=== PATIENT | male | born 1970 | race Caucasian/White ===

== ENCOUNTER 2023-08-31 07:22 | Inpatient (IN) | payer OTHER, SELFPAY ==
[2023-08-31] VITALS (20 sets, daily range): BP systolic 116–165; BP diastolic 74–87; PULSE 75–110; RESP 13–26; TEMP 36.1–37; O2SAT 91–99; BMI 35.2
--- NOTE | ~2023-08-31 | CT_ITS ---
CT Scan of the Chest without Contrast: Clinical Indication: Hypoxia Technique: Contiguous sections were acquired throughout the chest without intravenous contrast. Dose reduction technique was used on this scan by utilizing automated exposure control and iterative recon struction technique. The dose-length product (DLP) was 411.60 mGy-cm. Findings: There is no evidence of any significant mediastinal, hilar or axillary lymphadenopathy. The mediastin al soft tissues appear normal. There is no evidence of pleural or pericardial effusion. 5 mm right middle lobe pulmonary nodule present (axial image 68). Images through the upper abdomen reveal no abnormalities. Impression: 5 mm right middle lobe pulmonary nodule. According to Fleischner Society criteria, for a low-risk pat ient, no further follow-up required. For a high-risk patient, consider 12 month follow-up CT. Reviewed, dictated and finalized at [facility]. Impression: 5 mm right middle lobe pulmonary nodule. According to Fleischner Society criter ia, for a low-risk patient, no further follow-up required. For a high-risk antonio ent, consider 12 month follow-up CT.
--- NOTE | ~2023-08-31 | XR_ITS ---
EXAMINATION: XR chest 2V DATE: 08/31/2023 08:38 INDICATION: Shortness of breath. TECHNIQUE: Frontal and lateral views of the chest were obtained. COMPARISON: None. FINDINGS: There is no pneumonia, pleural effusion, or pneumothorax. The heart size is normal. IMPRESSION: 1. No acute cardiopulmonary disease. Reviewed, dictated and finalized at location A.
--- NOTE | 2023-08-31 07:29 | ECG_ITS ---
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 Measurements Intervals [place] Rate: 103 P: 58 HI: 154 QRS: -5 QRSD: 104 T: 54 QT: 340 QTc: 445 Interpretive Statements SINUS TACHYCARDIA POSSIBLE LEFT ATRIAL ENLARGEMENT [-0.1mV P WAVE IN V1/V2] ABNORMAL RHYTHM ECG No previous ECG available for comparison Electronically Signed On 08-31-2023 09:12:39 CDT by Tim Vazquez M.D.
[2023-08-31] MEDS: SODIUM CHLORIDE 0.9% IV 1,000 ML 999 ML IV CONT (07:40)
[2023-08-31] MEDS: IPRATROPIUM 0.5 MG/ALBUTEROL SULFATE 2.5 MG AMPUL.NEB 3 ML 6 ML INHALATION (07:49)
[2023-08-31 08:01] LABS: Base Excess ABG -0.6 mEq/l (+/-2.0); Fractional Inspired Oxygen 21 %; HCO3 ABG 24.4 mEq/l (22.0-26.0); Oxygen Content ABG 18.8 %vol (16.0-22.0); Oxygen Saturation ABG 88.8 % (95.0-100.0); PCO2 ABG 41.6 mmHg (35.0-45.0); PO2 ABG 55.9 mmHg (80.0-100.0); PO2 FiO2 Ratio Arterial Blood 2.66 %; Total Hemoglobin 15.6 g/dL (12.0-18.0); pH ABG 7.386 (7.350-7.450)
--- NOTE | 2023-08-31 08:01 | ED.GENADULT ---
HPI - General Adult General Chief complaint: Shortness of Breath/Dyspnea Stated complaint: SOB Time Seen by Provider: 08/31/23 07:37 History of Present Illness HPI narrative: This is a 53-year-old male with history of diabetes and COPD/ asthma presenting for difficulty breathing. Patient says that he has become steadily more short of breath over the last 3-5 days. It became acutely worse this morning. It is associated with a productive cough rust colored sputum. He denies fevers chills nausea vomiting or diarrhea. Patient has a history of COPD/ asthma stop taking his inhaler several years ago that they were useful. He has been taking his diabetes medication as instructed. denies history of heart failure but has some swelling of his legs. 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 Patient called EMS to a truck stop this morning for shortness of breath. When they found him he was wheezy all byrnes and received a DuoNeb treatment EN route with improvement. They did note that his blood sugar read high. Related Data Allergies Allergy/AdvReac Type Severity Reaction Status Date / Time diazepam [From Valium] AdvReac Unknown Verified 08/31/23 07:48 Penicillins AdvReac Unknown Verified 08/31/23 07:48 FOR[facility]LY [facility] Past Medical History Medical History (Updated 08/31/23 @ 12:49 by Florencio Philippe MD) COPD (chronic obstructive pulmonary disease) Diabetes Exam Narrative: APPEARANCE: No apparent distress. Head: atraumatic. EYES: EOMI, NOSE: Atraumatic NECK: Trachea midline RESPIRATORY: my exam was performed after a DuoNeb treatment EMS : No increased rate of breathing, speaking in full sentences, clear to auscultation CARDIOVASCULAR: RRR, +2 pitting edema. patient wears compression stockings at baseline. ABDOMINAL: Non-distended MUSCULOSKELETAl: No obvious deformities NEURO: Alert. Moving 4/4 extremities SKIN:: Warm, dry. Normal color PSYCHIATRIC: Normal affect Course Vital Signs Vital signs: Vital Signs Temperature 98.6 F 08/31/23 07:20 Pulse Rate 110 H 08/31/23 07:20 Respiratory Rate 26 H 08/31/23 07:20 Pulse Oximetry 93 08/31/23 07:20 Oxygen Delivery Room Air 08/31/23 07:20 Temperature 98.6 F 08/31/23 07:20 Pulse Rate 85 08/31/23 10:19 Respiratory Rate 26 H 08/31/23 10:19 Blood Pressure 116/78 08/31/23 10:19 Pulse Oximetry 95 08/31/23 10:19 Oxygen Delivery Nasal Cannula 08/31/23 08:20 Oxygen Flow Rate 2 08/31/23 08:20 Medical Decision Making MDM Narrative Medical decision making narrative: -Course: 53-year-old male history of COPD and diabetes presenting with difficulty breathing/productive cough and elevated blood sugars.Patient was wheezy for EMS and he was given a DuoNeb treatment en route. No significant wheezing on my initial exam. Patient is hypoxic on room air. D-dimer negative. Imaging negative for pneumonia. Patient given another DuoNeb/magnesium/steroids/bactrim for COPD exacerbation. Glucose was also elevated but no acidosis or ketosis. Improved with fluid rehydration to 358. Patient will be admitted to hospital for COPD exacerbation. 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 White count normal. D-dimer negative. ABG showed hypoxia without significant CO2 retention. Metabolic panel showed elevated glucose without evidence of DKA/ HHS, hemoglobin A1c 12.1. Minor elevations liver enzymes of unknown etiology. Urine not indicative infection. Viral swabs negative CT without evidence of pneumonia -Discussion of Management/Consultants: Shanel UPHOLSTERER APPRENTICE -Interventions: nicotine patch, dexamethasone, DuoNeb treatment, magnesium, Bactrim -Shared decision making / Disposition: admitted Vital Signs Vital Signs:
[2023-08-31 08:02] LABS: Basophils Absolute Auto 0.1 K/mm3 (0.0-0.1); Basophils Percent Auto 0.6 % (0.2-1.2); Beta-Hydroxybutyrate/Acetoacetate 0.15 mmol/L (0.02-0.27); Eosinophils Absolute Auto 0.4 K/mm3 (0-0.3); Eosinophils Percent Auto 4.4 % (0-4.4); Hematocrit 46.4 % (42.0-52.0); Hemoglobin 15.5 g/dL (14.0-18.0); Immature Granulocyte Absolute 0.07 K/mm3 (0.00-0.031); Immature Granulocyte Percent A 0.8 % (0-0.5); Lymphocytes Absolute Auto 1.76 K/mm3 (0.9-3.2); Lymphocytes Percent Auto 21.1 % (18.3-44.2); Mean Corpuscular HGB Conc 33.4 g/dl (32-36); Mean Corpuscular Hemoglobin 30.6 pg (26-34); Mean Corpuscular Volume 91.5 fl (80-100); Mean Platelet Volume 10.1 fl (7.4-10.4); Monocytes Absolute Auto 0.4 K/mm3 (0.1-0.6); Monocytes Percent Auto 4.9 % (2.6-8.5); Neutrophils Absolute Auto 5.7 K/mm3 (1.3-6.7); Neutrophils Percent Auto 68.2 % (45.5-73.1); Platelet Count Result 171 k/mm3 (150-375); Red Blood Count 5.07 M/mm3 (4.6-6.20); Red Cell Distribution Width 12.5 % (11.5-14.5); White Blood Count 8.3 K/mm3 (4.5-10.0)
[2023-08-31 08:02] LABS: Device ROOM AIR; Oxyhemoglobin 85.7 % THb (90.0-100.0); Site Drawn LEFT BRACHIAL
[2023-08-31] MEDS: MAGNESIUM SULF 2 GM/WATER 50ML 2 GM/50 ML BAG IVPB (08:05)
[2023-08-31 08:15] LABS: Appearance Urine Clear (Clear); Bilirubin Urine Negative (Negative); Blood Urine Negative (Negative); Color Urine Yellow (Yellow); Glucose Urine UA 3+ mg/dL (Negative); Ketones Urine Negative (Negative); Leukocyte Esterase Ur Negative LEU/UL (Negative); Nitrate Urine Negative (Negative); Protein Urine Negative (Negative); Urobilinogen Urine 0.2 mg/dL (<2.0); pH Urine 6.5 (5.0-9.0)
[2023-08-31 08:17] LABS: Alanine Aminotransferase 432 U/L (6-50); Albumin Level 4.1 g/dL (3.5-5.1); Alkaline Phosphatase 248 U/L (38-126); Anion Gap 6 mmol/L (4-12); Aspartate Amino Transferase 204 U/L (17-59); Bilirubin,Total 0.5 mg/dL (0.2-1.3); Blood Urea Nitrogen 13 mg/dL (9-20); Carbon Dioxide 26 mmol/L (22-30); Chloride 95 mmol/L (98-107); Estimated CRCL calculation 123 ml/min; Estimated Glomerular Filt Rate > 60; Glucose 793 mg/dL (65-110); Phosphorus 3.2 mg/dL (2.5-4.5); Potassium 4.3 mmol/L (3.4-5.0); Sodium 127 mmol/L (137-145)
[2023-08-31 08:21] LABS: Add Urine Microscopic? NO; Specific Grav Ur 1.037 (1.001-1.035)
[2023-08-31 08:34] LABS: Influenza A QL RT-PCR Negative (Negative); Influenza B QL RT-PCR Negative (Negative); RSV RNA, RT-PCR Negative (Negative); SARS-CoV-2 RNA PCR Negative (Negative)
[2023-08-31 09:51] LABS: Glucose Point of Care > 500 mg/dl (65-105)
[2023-08-31 09:54] LABS: NT Pro B Type Natriuretic Pept 76 pg/mL (19.9-100)
[2023-08-31 10:14] LABS: D Dimer 0.35 ug/mL (<0.48)
[2023-08-31] MEDS: NICOTINE (*PBKC) 21 MG PATCH 1 PATCH TRANSDERM (10:14)
[2023-08-31 11:03] LABS: Hemoglobin A1C 12.1 % (<5.7)
[2023-08-31] MEDS: methylPREDNISolone SOD SUCC 125 MG VIAL IV PUSH (11:38)
[2023-08-31] MEDS: SULFAMETHOXAZOLE/TRIMETHOPRIM 800/160 MG DS TABLET 1 TAB PO (11:38)
--- NOTE | 2023-08-31 12:39 | PC.NURSE ---
BS 378
[2023-08-31 12:40] LABS: Glucose Point of Care 378 mg/dl (65-105)
--- NOTE | 2023-08-31 13:46 | PC.NURSE ---
This patient, Mukesh Vail, was admitted to Medical Room 255-. Patient/family oriented to hospital policies and general routines including ID bracelet, bed and alarms, visiting hours, pain management, procedures, bathroom and other care routines, personal items, smoking policy, room service/diet, and visiting hours. Information on how to activate the Rapid Response Team has been discussed. Patient/Family are encouraged to report perceived risks to care and to ask questions if they do not understand what they are told or what they should do.
--- NOTE | 2023-08-31 14:04 | PM.IMHP ---
H&P: HPI History of Present Illness Date/Time: 08/31/23 14:04 Chief Complaint: SOB, Hyperglycemia Narrative: 53 y/o M presents here with shortness of breath and hyperglycemia with PMH COPD and DM. The patient presents here via EMS from home for further evaluation of shortness of breath and hyperglycemia. Patient reports the shortness of breath began approximately 3-5 days ago with an insidious onset. He sought care today due to the significant worsening in his shortness of breath this morning. Shortness of breath is accompanied by a productive cough yielding green and brown sputum. Upon EMS arrival, patient's O2 sat was 91% on RA. Given DuoNeb and placed on a nasal cannula in route. Upon arrival to the ED his sat was 93% on RA, later placed back on supplemental O2. Patient's glucose on his chemistry panel was 793. Reports compliance with his diabetes medications, however has been noncompliant with his COPD medications for the past few years. Reports that he self-discontinued these medications as they were not helpful . Patient does/does not monitor his glucose levels at home. 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 Initial VS at presentation: 98.6? F, HR 110, RR 26, 139/75, and 93% on RA. ED workup showed: No leukocytosis, no anemia, D-dimer negative, ABG showed low PO2 and O2 saturation, sodium 127, creatinine 0.7 and GFR >60, glucose 73, A1c 12.1, AST 204, ALT 432, alk-phos 248, beta hydroxy 0.15, BNP 76. UA not suggestive of UTI. Viral PCR negative. CXR showed no acute cardiopulmonary disease. Chest CT showed a 5 mm right middle lobe pulmonary nodule. Review of Systems Review of Systems: All systems reviewed & are unremarkable except as noted in HPI and below PMFSH Past Medical History Medical History ADHD Anxiety Asthma Bipolar disorder Cataracts, bilateral COPD (chronic obstructive pulmonary disease) Diabetes GERD (gastroesophageal reflux disease) HLD (hyperlipidemia) Sleep apnea Surgical History Surgical History History of inguinal hernia repair Family History Family History Mother Cancer Heart failure Diabetes mellitus Father Malignant neoplasm of prostate Other Hypotension Social History Social History Smoking packs per day: 2 Smoking cigarettes per day: 40.0 Smoking status: Current every day smoker Tobacco type: cigarettes Alcohol intake: current Drinks per week: 2 Substance use: never Do You Feel Safe in your Home?: Yes Lack of Transportation: No Lack of Food: Never True Current Housing: I Have Housing Concerned About Future Housing: No Difficulty Paying Gas/Electric Bills: No Difficulty Paying for Meds: No Currently Unemployed: No Education: Grade School Difficulty w/ Childcare or Family Care: No Spiritual care concerns: No Meds Home Medications and Allergies Home Medications Medication Instructions Recorded Confirmed Type aripiprazole 10 mg tablet 10 mg PO DAILY 08/31/23 08/31/23 History atorvastatin 20 mg tablet 20 mg PO HS 08/31/23 08/31/23 History dulaglutide 4.5 mg/0.5 mL 4.5 mg subcut WEEKLY 08/31/23 08/31/23 History subcutaneous pen injector (Trulicity) ertugliflozin 15 mg tablet 15 mg PO DAILY 08/31/23 08/31/23 History (Steglatro) flash glucose sensor (FreeStyle 08/31/23 08/31/23 History Stacia 2 Sensor kit) furosemide 20 mg tablet 20 mg PO DAILY 08/31/23 08/31/23 History glipizide 10 mg tablet 10 mg PO BID 08/31/23 08/31/23 History metformin 500 mg tablet 1,000 mg PO BID 08/31/23 08/31/23 History mirtazapine 15 mg tablet 15 mg PO HS 08/31/23 08/31/23 History omeprazole 20 mg capsule,delayed 20 mg PO DAILY 08/31/23 08/31/23 Histor
[2023-08-31 14:48] LABS: Glucose Point of Care 480 mg/dl (65-105)
[2023-08-31] MEDS: IPRATROPIUM 0.5 MG/ALBUTEROL SULFATE 2.5 MG AMPUL.NEB 3 ML INHALATION (15:22)
--- NOTE | 2023-08-31 15:27 | PC.NURSE ---
Voicemail left with adaptive physical educator.
[2023-08-31] MEDS: INSULIN HUMAN REGULAR (*BKC) 100 UNITS/ML 12 UNITS SUB-Q ×2 (15:40→22:00)
[2023-08-31] MEDS: AZITHROMYCIN 500 MG/NS 250 ML 500 MG/250 ML BAG 250 MG IVPB (16:12)
[2023-08-31 16:50] LABS: Glucose Point of Care 399 mg/dl (65-105)
[2023-08-31] MEDS: methylPREDNISolone SOD SUCC 125 MG VIAL 60 MG IV PUSH (17:25)
[2023-08-31] MEDS: INSULIN ASPART (*BKC) 100 UNITS/ML SUB-Q (17:25)
[2023-08-31 21:38] LABS: Glucose Point of Care 435 mg/dl (65-105)
[2023-09-01] VITALS (14 sets, daily range): BP systolic 116–129; BP diastolic 67; PULSE 70–82; RESP 16–20; TEMP 35.9–36.7; O2SAT 93–100
[2023-09-01] MEDS: methylPREDNISolone SOD SUCC 125 MG VIAL 60 MG IV PUSH ×4 (00:35→17:43)
[2023-09-01] MEDS: INSULIN GLARGINE (*BKC) 100 UNITS/ML 16 UNITS SUB-Q ×3 (00:39→17:43)
[2023-09-01] MEDS: IPRATROPIUM 0.5 MG/ALBUTEROL SULFATE 2.5 MG AMPUL.NEB 3 ML INHALATION ×4 (02:25→20:24)
[2023-09-01 05:28] LABS: Basophils Percent Auto 0.3 % (0.2-1.2); Hematocrit 43.4 % (42.0-52.0); Hemoglobin 14.4 g/dL (14.0-18.0); Immature Granulocyte Absolute 0.11 K/mm3 (0.00-0.031); Immature Granulocyte Percent A 0.9 % (0-0.5); Lymphocytes Absolute Auto 1.31 K/mm3 (0.9-3.2); Lymphocytes Percent Auto 10.7 % (18.3-44.2); Mean Corpuscular HGB Conc 33.2 g/dl (32-36); Mean Corpuscular Hemoglobin 29.9 pg (26-34); Mean Corpuscular Volume 90.2 fl (80-100); Mean Platelet Volume 9.9 fl (7.4-10.4); Monocytes Absolute Auto 0.2 K/mm3 (0.1-0.6); Monocytes Percent Auto 1.8 % (2.6-8.5); Neutrophils Absolute Auto 10.6 K/mm3 (1.3-6.7); Neutrophils Percent Auto 86.3 % (45.5-73.1); Platelet Count Result 171 k/mm3 (150-375); Red Blood Count 4.81 M/mm3 (4.6-6.20); Red Cell Distribution Width 12.7 % (11.5-14.5); White Blood Count 12.3 K/mm3 (4.5-10.0)
[2023-09-01 05:49] LABS: Alanine Aminotransferase 298 U/L (6-50); Albumin Level 3.7 g/dL (3.5-5.1); Alkaline Phosphatase 194 U/L (38-126); Anion Gap 5 mmol/L (4-12); Aspartate Amino Transferase 53 U/L (17-59); Bilirubin,Total 0.5 mg/dL (0.2-1.3); Blood Urea Nitrogen 19 mg/dL (9-20); Calcium 8.7 mg/dL (8.4-10.2); Carbon Dioxide 24 mmol/L (22-30); Chloride 102 mmol/L (98-107); Estimated CRCL calculation 169 ml/min; Estimated Glomerular Filt Rate > 60; Glucose 329 mg/dL (65-110); Potassium 4.4 mmol/L (3.4-5.0); Sodium 131 mmol/L (137-145)
[2023-09-01 06:10] LABS: Glucose Point of Care 325 mg/dl (65-105)
[2023-09-01] MEDS: INSULIN HUMAN NPH (*BKC) 100 UNITS/ML 8 UNITS SUB-Q (06:11)
--- NOTE | 2023-09-01 08:02 | PM.IMPN ---
Progress Note: A&P Assessment and Plan (1) COPD exacerbation: Code(s): J44.1 - Chronic obstructive pulmonary disease with (acute) exacerbation Status: Acute (2) Uncontrolled type 2 diabetes mellitus: Status: Acute Plan (1) COPD (chronic obstructive pulmonary disease): Qualifiers: COPD type: COPD with acute exacerbation Qualified Code(s): J44.1 - Chronic obstructive pulmonary disease with (acute) exacerbation Code(s): J44.9 - Chronic obstructive pulmonary disease, unspecified Status: Acute Assessment and Plan: possible COPD exacerbation, patient has a productive cough and worsening shortness breath - CXR: no acute cardiopulmonary disease. - started on prophylactic abx: azithromycin and ceftriaxone on 08/30 - methylprednisolone 60 mg IVP Q6H, given loading dose of 125 mg IVP - DuoNebs Q6H NARINDER - Viral PCR negative - sputum culture - currently requiring supplemental O2 - 2L NC uncontrolled type 2 diabetes - initial glucose 793 - no ketones on UA - pH 7.386 on ABG - beta hydroxy 0.15 - given 1L of fluid and 10 of regular insulin IVP - sodium 144 when corrected for hyperglycemia - hypoglycemia protocol - POC blood glucose ACHS - home medications: Holding ertugliflozin, glipizide, metformin, and start Lantus 16 units b.i.d., discontinue NPH 8 units subQ b.i.d. start aspart 5 mg t.i.d. with meal continue correct regimen ordered - moderate dose TIDWM, based off BMI - A1C 12.1% - body mechanic consulted may be discharged patient in 1-2 days, Subjective Date/time seen: 09/01/23 08:02 Interval history: I saw and examined the patient patient room. Patient feels dyspnea is improving, patient still has cough with phlegm. Patient feel tired, has polyuria, polydipsia. patient denies abdomen pain nausea vomiting diarrhea dysuria Exam Narrative: GENERAL: Pleasant, in no acute distress. Well-nourished. - EYES: EOMI. Anicteric. - HENT: Moist mucous membranes. - LUNGS: Clear to auscultation bilaterally, no wheezing, rhonchi, or rales. - CARDIOVASCULAR: Regular rate and rhythm. No murmur. No JVD. - ABDOMEN: Soft, non-tender and non-distended. No palpable masses. - EXTREMITIES: No edema. Peripheral pulses 2+. Non-tender. - NEUROLOGIC: No focal neurological deficits. CN II-XII grossly intact. - PSYCHIATRIC: Awake, Alert and oriented x 3. Appropriate mood and affect. - SKIN: No rashes or lesions. Warm. - LYMPH: No cervical lymphadenopathy. Objective Data Vital Signs Vital Signs: Vital Signs - 24 hr 08/31/23 08:20 08/31/23 08:45 08/31/23 08:48 Temperature Pulse Rate 97 99 Respiratory Rate 22 H 22 H Blood Pressure 146/77 H 146/77 H Pulse Oximetry 94 93 93 Oxygen Delivery Nasal Cannula Oxygen Flow Rate 2 Fraction of Inspired Oxygen 08/31/23 09:01 08/31/23 09:32 08/31/23 10:19 Temperature Pulse Rate 91 88 85 Respiratory Rate 21 H 17 26 H Blood Pressure 132/76 141/74 H 116/78 Pulse Oximetry 93 96 95 Oxygen Delivery Oxygen Flow Rate Fraction of Inspired Oxygen 08/31/23 12:45 08/31/23 14:00 08/31/23 15:26 Temperature 97.6 F Pulse Rate 82 78 79 Respiratory Rate 18 16 20 Blood Pressure 150/77 H 164/87 H Pulse Oximetry 96 95 92 Oxygen Delivery Nasal Cannula Oxygen Flow Rate 2 Fraction of Inspired Oxygen 08/31/23 15:26 08/31/23 15:32 08/31/23 14:35 Temperature Pulse Rate 79 75 Respiratory Rate 20 20 Blood Pressure Pulse Oximetry 92 Oxygen Delivery Nasal Cannula Oxygen Flow Rate 2 Fraction of Inspired Oxygen 08/31/23 20:13 08/31/23 20:50 09/01/23 02:25 Temperature 97.0 F L Pulse Rate 86 72 Respiratory Rate 18 20 Blood Pressure 165/83 H Pulse Oximetry 91 91 Oxygen Delivery Nasal Cannula Oxygen Flow Rate 2 Fraction of Inspired Oxygen 09/01/23 02:40 09/01/23 02:41 09/01/23 05:43 Temperature 97.6 F Pulse Rate 74 73 82 Respiratory Rate 20 20 18 Blood
[2023-09-01 08:30] LABS: Glucose Point of Care 333 mg/dl (65-105)
[2023-09-01] MEDS: INSULIN ASPART (*BKC) 100 UNITS/ML SUB-Q ×5 (09:00→17:44)
[2023-09-01] MEDS: PIOGLITAZONE HCL 30 MG TABLET PO (09:16)
[2023-09-01] MEDS: ARIPiprazole 10 MG TABLET PO (09:16)
[2023-09-01] MEDS: PANTOPRAZOLE 40 MG TABLET PO (09:16)
[2023-09-01 12:00] LABS: Glucose Point of Care 218 mg/dl (65-105)
[2023-09-01] MEDS: NICOTINE (*PBKC) 21 MG PATCH 1 PATCH TRANSDERM (12:17)
[2023-09-01 16:56] LABS: Glucose Point of Care 291 mg/dl (65-105)
[2023-09-01] MEDS: AZITHROMYCIN 500 MG/NS 250 ML 500 MG/250 ML BAG 250 MG IVPB (17:01)
[2023-09-01] MEDS: VENLAFAXINE HCL XR 75 MG CAP.ER.24H 150 MG PO (20:52)
[2023-09-01] MEDS: MIRTAZAPINE 15 MG TABLET PO (20:52)
[2023-09-01] MEDS: ATORVASTATIN 20 MG TABLET PO (20:52)
[2023-09-01 21:19] LABS: Glucose Point of Care 299 mg/dl (65-105)
[2023-09-02] VITALS (11 sets, daily range): BP systolic 111–125; BP diastolic 62–74; PULSE 72–77; RESP 18–20; TEMP 36.2–36.4; O2SAT 94–96
[2023-09-02] MEDS: methylPREDNISolone SOD SUCC 125 MG VIAL 60 MG IV PUSH ×2 (00:25→05:51)
[2023-09-02] MEDS: IPRATROPIUM 0.5 MG/ALBUTEROL SULFATE 2.5 MG AMPUL.NEB 3 ML INHALATION ×3 (03:02→13:20)
[2023-09-02 08:04] LABS: Glucose Point of Care 209 mg/dl (65-105)
[2023-09-02] MEDS: NICOTINE (*PBKC) 21 MG PATCH 1 PATCH TRANSDERM (08:26)
[2023-09-02] MEDS: INSULIN ASPART (*BKC) 100 UNITS/ML SUB-Q ×5 (08:28→17:17)
[2023-09-02] MEDS: PANTOPRAZOLE 40 MG TABLET PO (08:28)
[2023-09-02] MEDS: ARIPiprazole 10 MG TABLET PO (08:28)
[2023-09-02] MEDS: PIOGLITAZONE HCL 30 MG TABLET PO (08:28)
[2023-09-02] MEDS: INSULIN GLARGINE (*BKC) 100 UNITS/ML 16 UNITS SUB-Q ×2 (08:31→17:21)
--- NOTE | 2023-09-02 10:29 | PM.IMPN ---
Progress Note: A&P Assessment and Plan (1) COPD exacerbation: Code(s): J44.1 - Chronic obstructive pulmonary disease with (acute) exacerbation Status: Acute (2) Uncontrolled type 2 diabetes mellitus: Status: Acute Plan This is a 53-year-old male with history of diabetes and COPD/asthma present with shortness of breath. Ongoing over the past 3-5 days prior to admission. Associated productive cough with keira colored sputum. No fever chills. No nausea vomiting diarrhea. He stopped using his inhaler several years ago. Has been on oral hypoglycemic agent for his diabetes. 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 EMS was called to a truck stop while he was acutely short of breath. He was diffusely wheezy on arrival of EMS and received a DuoNeb treatment in route with improvement. His blood sugar was elevated at 793 on presentation to the ED. On ED evaluation patient was hypoxic on room air needing oxygen supplementation via nasal cannula. Mildly tachycardic afebrile. Laboratory evaluation showed normal WBC 8.3 hemoglobin of 15.5 hyponatremia of 127 blood sugar of 793. LFTs were elevated with AST 204 ALT 432 alkaline phosphatase 248. BNP was 76. Beta hydroxybutyrate was 0.15. Influenza RSV and COVID was negative. The urinalysis was negative for infection. ABG performed showed 7.38/41/55/24. D-dimer was negative. EKG showed sinus tachycardia. Chest x-ray with no acute cardiopulmonary disease. CT chest was performed on 08/31/2023 without contrast which showed 5 mm right middle lobe pulmonary nodule that needs a follow-up CT scan. He has long-term smoker. He has been started on antibiotics and steroid with improvement. Will switch his steroid to oral to complete 5 days course. Short course has also concurrently hyperglycemic with a A1c coming back at 12.1. His oral hypoglycemic agents are on hold currently and has been started on basal bolus insulin regimen. extension educator consultation. Anticipate insulin regimen to start at discharge due to uncontrolled diabetes mellitus. No signs of DKA on admission. Hypoxic respiratory failure needing oxygen supplementation via nasal cannula has been tapered off to room air. DVT prophylaxis SCDs. Subjective Date/time seen: 09/02/23 10:29 Interval history: No overnight events. Breathing has improved. Cough is improved. Blood sugar trend reviewed. Review of Systems Review of Systems: All systems reviewed & are unremarkable except as noted in HPI and below Exam Narrative: GENERAL: Pleasant, in no acute distress. Well-nourished. - EYES: EOMI. Anicteric. - HENT: Moist mucous membranes. - LUNGS: Coarse breath sounds to auscultation bilaterally, no wheezing, rhonchi, or rales. - CARDIOVASCULAR: Regular rate and rhythm. No murmur. No JVD. - ABDOMEN: Soft, non-tender and non-distended. No palpable masses. - EXTREMITIES: No edema. Peripheral pulses 2+. Non-tender. - NEUROLOGIC: No focal neurological deficits. CN II-XII grossly intact. - PSYCHIATRIC: Awake, Alert and oriented x 3. Appropriate mood and affect. - SKIN: No rashes or lesions. Warm. - LYMPH: No cervical lymphadenopathy. Objective Data Vital Signs Vital Signs: Vital Signs - 24 hr 09/01/23 14:08 09/01/23 14:17 09/01/23 15:07 Temperature 98.0 F Pulse Rate 72 76 76 Respiratory Rate 18 18 16 Blood Pressure 129/67 Pulse Oximetry 95 Oxygen Delivery Fraction of Inspired Oxygen 09/01/23 20:32 09/01/23 20:24 09/01/23 20:38 Temperature 96.7 F L Pulse Rate 70 78 79 Respiratory Rate 20 18 18 Blood Pressure 116/67 Pulse Oximetry 100 Oxygen Delivery Fraction of Inspired Oxygen 09/01/23 20:50 09/02/23 03:01 09/02/23 03:09 Temperature Pulse Rate 79 76 77 Respiratory Rate 18 18 18 Blood Pressure Pulse Oximetry 100 Oxygen Delivery Room Air Fraction of Inspired Oxygen 21 09/01/23 23:00 09/02/23 05:52 09/02/23 07:37 Temperature 97.6 F Pulse Rate 7
[2023-09-02 11:59] LABS: Glucose Point of Care 211 mg/dl (65-105)
--- NOTE | 2023-09-02 14:44 | PC.NURSE ---
left message with ice plant operator to see patient tomorrow.
[2023-09-02 17:12] LABS: Glucose Point of Care 175 mg/dl (65-105)
[2023-09-02] MEDS: AZITHROMYCIN 500 MG/NS 250 ML 500 MG/250 ML BAG 250 MG IVPB (17:29)
[2023-09-02 20:57] LABS: Glucose Point of Care 206 mg/dl (65-105)
[2023-09-02] MEDS: VENLAFAXINE HCL XR 75 MG CAP.ER.24H 150 MG PO (21:49)
[2023-09-02] MEDS: ATORVASTATIN 20 MG TABLET PO (21:49)
[2023-09-02] MEDS: MIRTAZAPINE 15 MG TABLET PO (21:49)
[2023-09-03 05:27] LABS: Basophils Percent Auto 0.4 % (0.2-1.2); Eosinophils Absolute Auto 0.1 K/mm3 (0-0.3); Eosinophils Percent Auto 1.1 % (0-4.4); Immature Granulocyte Absolute 0.17 K/mm3 (0.00-0.031); Immature Granulocyte Percent A 1.6 % (0-0.5); Lymphocytes Absolute Auto 3.26 K/mm3 (0.9-3.2); Lymphocytes Percent Auto 31.1 % (18.3-44.2); Mean Corpuscular HGB Conc 32.6 g/dl (32-36); Mean Corpuscular Volume 92.1 fl (80-100); Mean Platelet Volume 9.5 fl (7.4-10.4); Monocytes Absolute Auto 0.6 K/mm3 (0.1-0.6); Monocytes Percent Auto 5.8 % (2.6-8.5); Neutrophils Absolute Auto 6.3 K/mm3 (1.3-6.7); Platelet Count Result 197 k/mm3 (150-375); Red Blood Count 4.67 M/mm3 (4.6-6.20); White Blood Count 10.5 K/mm3 (4.5-10.0)
[2023-09-03 05:51] LABS: Alanine Aminotransferase 166 U/L (6-50); Albumin Level 3.5 g/dL (3.5-5.1); Alkaline Phosphatase 124 U/L (38-126); Anion Gap 5 mmol/L (4-12); Aspartate Amino Transferase 34 U/L (17-59); Bilirubin,Total 0.4 mg/dL (0.2-1.3); Blood Urea Nitrogen 32 mg/dL (9-20); Calcium 8.7 mg/dL (8.4-10.2); Carbon Dioxide 27 mmol/L (22-30); Chloride 105 mmol/L (98-107); Estimated CRCL calculation 125 ml/min; Estimated Glomerular Filt Rate > 60; Glucose 90 mg/dL (65-110); Magnesium 2.2 mg/dL (1.6-2.3); Potassium 3.5 mmol/L (3.4-5.0); Sodium 137 mmol/L (137-145)
[2023-09-03 05:57] VITALS: BP 135/76; PULSE 79; RESP 18; TEMP 36.7; O2SAT 94
[2023-09-03 08:00] VITALS: O2SAT 94
[2023-09-03 08:04] LABS: Glucose Point of Care 90 mg/dl (65-105)
[2023-09-03] MEDS: predniSONE 20 MG TABLET 40 MG PO (08:18)
[2023-09-03] MEDS: ARIPiprazole 10 MG TABLET PO (08:18)
[2023-09-03] MEDS: PANTOPRAZOLE 40 MG TABLET PO (08:18)
[2023-09-03] MEDS: PIOGLITAZONE HCL 30 MG TABLET PO (08:18)
[2023-09-03] MEDS: NICOTINE (*PBKC) 21 MG PATCH 1 PATCH TRANSDERM (08:18)
--- NOTE | 2023-09-03 08:22 | PC.NURSE ---
Dr Lara notified of glucose 900 this am and holding schedules novolog 5 units.
[2023-09-03 09:50] VITALS: BMI 35.2
--- NOTE | 2023-09-03 11:39 | PM.DS ---
DS: Admitting Diagnosis Discharge Date 09/03/2023 Admitting Diagnosis Shortness of breath DS: Discharge Diagnosis Discharge Diagnosis (1) COPD exacerbation: Code(s): J44.1 - Chronic obstructive pulmonary disease with (acute) exacerbation Status: Acute (2) Uncontrolled type 2 diabetes mellitus: Status: Acute DS: Summary Hospital Course Hospital Course: This is a 53-year-old male with history of diabetes and COPD/asthma present with shortness of breath. Ongoing over the past 3-5 days prior to admission. Associated productive cough with keira colored sputum. No fever chills. No nausea vomiting diarrhea. He stopped using his inhaler several years ago. Has been on oral hypoglycemic agent for his diabetes. 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 EMS was called to a truck stop while he was acutely short of breath. He was diffusely wheezy on arrival of EMS and received a DuoNeb treatment in route with improvement. His blood sugar was elevated at 793 on presentation to the ED. On ED evaluation patient was hypoxic on room air needing oxygen supplementation via nasal cannula. Mildly tachycardic afebrile. Laboratory evaluation showed normal WBC 8.3 hemoglobin of 15.5 hyponatremia of 127 blood sugar of 793. LFTs were elevated with AST 204 ALT 432 alkaline phosphatase 248. BNP was 76. Beta hydroxybutyrate was 0.15. Influenza RSV and COVID was negative. The urinalysis was negative for infection. ABG performed showed 7.38/41/55/24. D-dimer was negative. EKG showed sinus tachycardia. Chest x-ray with no acute cardiopulmonary disease. CT chest was performed on 08/31/2023 without contrast which showed 5 mm right middle lobe pulmonary nodule that needs a follow-up CT scan. He has long-term smoker. He has been started on antibiotics and steroid with improvement. Will switch his steroid to oral to complete 5 days course. Short course has also concurrently hyperglycemic with a A1c coming back at 12.1. His oral hypoglycemic agents are on hold currently and has been started on basal bolus insulin regimen. breastfeeding educator consultation. Anticipate insulin regimen to start at discharge due to uncontrolled diabetes mellitus. No signs of DKA on admission. Will switch to basal insulin. Continue oral hypoglycemic agent as prandial coverage. Follow-up with PCP with regard to titration of his diabetes medications. Hypoxic respiratory failure needing oxygen supplementation via nasal cannula has been tapered off to room air. DVT prophylaxis SCDs. Time Spent with Patient Time attestation: Total time spent providing and/or coordinating discharge services: 32 minutes Exam Narrative: GENERAL: Pleasant, in no acute distress. Well-nourished. - EYES: EOMI. Anicteric. - HENT: Moist mucous membranes. - LUNGS: Coarse breath sounds to auscultation bilaterally, no wheezing, rhonchi, or rales. - CARDIOVASCULAR: Regular rate and rhythm. No murmur. No JVD. - ABDOMEN: Soft, non-tender and non-distended. No palpable masses. - EXTREMITIES: No edema. Peripheral pulses 2+. Non-tender. - NEUROLOGIC: No focal neurological deficits. CN II-XII grossly intact. - PSYCHIATRIC: Awake, Alert and oriented x 3. Appropriate mood and affect. - SKIN: No rashes or lesions. Warm. - LYMPH: No cervical lymphadenopathy. DS: Data Data Completed and Pending Labs on day of discharge: Labs from last 24 hours 09/03/23 09/03/23 09/02/23 08:01 05:10 20:14 WBC 10.5 H RBC 4.67 Hgb 14.0 Hct 43.0 MCV 92.1 MCH 30.0 MCHC 32.6 RDW 14.0 Plt Count 197 MPV 9.5 Immature Gran % (Auto) 1.6 H Neut % (Auto) 60.0 Lymph % (Auto) 31.1 [place] % (Auto) 5.8 Eos % (Auto) 1.1 Baso % (Auto) 0.4 Lymph # (Auto) 3.26 H [place] # (Auto) 0.6 Eos # (Auto) 0.1 Baso # (Auto) 0.0 Abs Immat Gran (auto) 0.17 H Absolute Neuts (auto) 6.3 Absolute Nucleated RBC 0.000 Nucleated RBC % 0.0 Sodium 137 Potassium 3
[2023-09-03 11:50] LABS: Glucose Point of Care 206 mg/dl (65-105)
--- NOTE | 2023-09-07 13:17 | PCCDE ---
09/06: 1:15 pm Briefly followed up with patient by phone. He has seen his MD since discharge and the DM plan is to monitor glucose x 3 wks and reassess. Denies questions/concerns for me. FJ
== END 2023-09-03 13:34 | disposition home or self-care (01) | DRG 192 ==
LOC: ANHED 12:49 → ANH2MED 13:15
PROVIDERS: Student in an Organized Health Care Education/Training Program; Admitting Provider Internal Medicine; Emergency Provider Emergency Medicine; Visit Provider Internal Medicine
DX: J44.1 Chronic obstructive pulmonary disease with (acute) exacerbation (principal); E11.65 Type 2 diabetes mellitus with hyperglycemia; E78.5 Hyperlipidemia, unspecified; K21.9 Gastro-esophageal reflux disease without esophagitis; G47.30 Sleep apnea, unspecified; F41.9 Anxiety disorder, unspecified; F90.9 Attention-deficit hyperactivity disorder, unspecified type; F31.9 Bipolar disorder, unspecified; F17.210 Nicotine dependence, cigarettes, uncomplicated; Z20.822 Contact with and (suspected) exposure to COVID-19; Z91.148 Patient's other noncompliance with medication regimen for other reason
CPT/HCPCS: 36415; 36600; 71046; 71250; 80053; 81003; 82010; 82805; 82948; 83036; 83735; 83880; 84100; 85025; 85380; 87637; 93005; 94640; 96361; 96365; 96375; 99285; A9270; G0378; J0456; J0696; J1815; J2919; J3475; J7030; J7512